=== PATIENT | female | born 1950 | race Caucasian/White ===

== ENCOUNTER 2018-08-07 10:14 | Outpatient (REF) | payer MEDICARE, BC, SELFPAY ==
[2018-08-07 14:14] LABS: Iron 155 ug/dL (50-175); Total Iron Binding Capacity 279 ug/dL (250-450); Transferrin Sat 56 % (15-50)
[2018-08-07 14:16] LABS: Anion Gap 10.2 mmol/L (3-11); BUN 17 mg/dL (7-18); C-Reactive Protein 0.08 mg/dL (0.0-0.3); CO2 27.8 mmol/L (21.0-32.0); CREATININE 0.72 mg/dL (0.55-1.02); Calcium 9.4 mg/dL (8.5-10.1); Chloride 102 mmol/L (98-107); Creatine Kinase 56 U/L (26-192); Glucose 91 mg/dL (70-100); Magnesium 1.9 mg/dL (1.8-2.4); Sodium 140 mmol/L (136-145); TSH (W/Ref FT4) 0.79 uIU/mL (0.358-3.74)
[2018-08-07 15:18] LABS: Vitamin B12 381 pg/mL (193-986)
[2018-08-07 15:25] LABS: Abs Immature Grans 0.01 k/cumm (0.0-0.09); Absolute Basophil Count 0.02 k/cumm (0.0-0.2); Absolute Eosinophil Count 0.08 k/cumm (0.0-0.7); Absolute Lymphocyte Count 1.26 k/cumm (1.2-3.4); Absolute Monocyte Count 0.34 k/cumm (0.11-0.7); Basophils % 0.4; Eosinophils % 1.6; HCT 40.9 % (36.0-46.0); HGB 13.4 g/dL (12.0-15.5); Immature Grans % 0.2; Lymphocytes % 25.1; Mean Corp. HGB Concentration 32.8 g/dL (32.0-36.0); Mean Corpuscular Volume 94.7 fL (80-95); Mean Platelet Volume 9.9 fL (8.0-11.0); Monocytes % 6.8; Neutrophils % 65.9; Platelet Count 249 x1000/uL (130-400); RBC 4.32 m/cumm (4.00-5.20); RBC Distribution Width 11.7 % (11.7-14.6); White Blood Cell Count 5.01 k/cumm (4.4-10.8)
[2018-08-07 16:08] LABS: ESR 12 MM/HR (0-30)
[2018-08-08 09:24] LABS: Hepatitis C Ab w Rflx HCV PCR Negative (NEGAT)
[2018-08-08 11:43] LABS: Lyme Ab w Rflx to Lyme Confirm Negative
[2018-08-08 14:43] LABS: ANA Interpretation Negative (NEGAT)
== END 2018-08-07 10:34 ==
LOC: NCHCN 10:14
PROVIDERS: PCP Internal Medicine; Visit Provider Nurse Practitioner Family
DX: M79.10 Myalgia, unspecified site (principal); M54.2 Cervicalgia; M25.511 Pain in right shoulder; M25.512 Pain in left shoulder; Z11.59 Encounter for screening for other viral diseases
CPT/HCPCS: 80048; 82550; 85652; 86803; 82607; 83540; 83550; 83735; 84443; 85025; 86038; 86140; 86618

== ENCOUNTER 2019-05-29 16:40 | Outpatient (REF) | payer MEDICARE, BC, SELFPAY ==
[2019-05-29 17:17] LABS: HCT 40.4 % (36.0-46.0); HGB 13.5 g/dL (12.0-15.5); Mean Corp. HGB Concentration 33.4 g/dL (32.0-36.0); Mean Corpuscular Hemoglobin 31.4 pg (27.0-33.0); Mean Platelet Volume 9.1 fL (8.0-11.0); Platelet Count 269 x1000/uL (130-400); RBC Distribution Width 11.9 % (11.7-14.6); White Blood Cell Count 4.87 k/cumm (4.4-10.8)
[2019-05-29 17:36] LABS: ALT 25 U/L (14-59); AST 17 U/L (15-37); Albumin 4.1 g/dL (3.4-5.0); Alkaline Phosphatase 84 U/L (46-116); BUN 15 mg/dL (7-18); Bilirubin, Total 0.3 mg/dL (0.2-1.0); CREATININE 0.63 mg/dL (0.55-1.02); Calcium 9.2 mg/dL (8.5-10.1); Calculated LDL 156 mg/dL; Chloride 102 mmol/L (98-107); Cholesterol 251 mg/dL (<200); Glucose 96 mg/dL (74-106); HDL Cholesterol 69 mg/dL (40-60); Potassium 3.8 mmol/L (3.5-5.1); Sodium 140 mmol/L (136-145); TSH (W/Ref FT4) 0.83 uIU/mL (0.36-3.74); Total Protein 7.2 g/dL (6.4-8.2); Triglyceride 134 mg/dL (<150)
== END 2019-05-29 17:00 ==
LOC: NCHCN 16:40
PROVIDERS: PCP Internal Medicine; Visit Provider Specialist/Technologist Athletic Trainer
DX: E78.5 Hyperlipidemia, unspecified (principal); R07.89 Other chest pain
CPT/HCPCS: 80053; 80061; 85027; 83735; 84443

== ENCOUNTER 2019-12-30 05:08 | Emergency (ER) | payer MEDICARE, BC, SELFPAY ==
[2019-12-30 05:13] VITALS: BP 157/85; PULSE 84; RESP 18; TEMP 36.3; O2SAT 97
--- NOTE | 2019-12-30 05:15 | ED.GENADUL_ITS ---
Discharge Plan Disposition Patient Disposition: HOME Condition: Stable Discharge Details Chief Complaint: Allergic Clinical Impression: Bee sting, Allergic reaction Primary Care Provider: Aura Bee ED Provider: Moses Sotelo Home Meds and New Rx's Prescriptions: New prednisone 20 mg tablet 60 mg PO DAILY 4 Days Qty: 12 RF: 0 Discharge Instructions Instructions: General Allergic Reaction (ED) Additional Instructions: take benadryl as needed, 25-50mg every 6 hours if you feel short of breath, chest pain, abdominal pain or nausea/vomit or difficulty swallowing liquids return to the emergency department Medical Decision Making 69 yo female comes in after she was stung numerous times by bees. She states she heard a bear getting into her bee hive and he knocked it over. She went outside and scared the bear away but then was stung over 40 times she thinks by bees. She has itching urticaria denies any respiratory or gi complaints and no difficulty swallowing or throat discomfort. She has clear lungs speaking in full sentences on exam. Doubt anaphylaxis, she drove herself here so will give prednisone and observe. Given she has to drive will hold on benadryl at present pt remains hd stable no changes and no respiratory or GI symptoms will d/c home and return precautions given Differential Diagnosis Differential Diagnosis: allergic reaction, bee sting, anaphylxis HPI General Mode of arrival: ambulatory . Date/Time Provider Initiated Documentation: 12/30/19 05:09 . Limitations to Documentation: no limitations . Information obtained by: patient . History of Present Illness 69 year old F presents to the emergency department with the chief complaint of bee stings, described as moderate, and it has been constant. No relieving factors improve symptom(s), No exacerbating factors reported . Related Data Home Medications Medication Instructions Recorded Confirmed prednisone 60 mg PO DAILY 4 Days #12 tab 12/30/19 Previous Rx's Medication Instructions Recorded prednisone 60 mg PO DAILY 4 Days #12 tab 12/30/19 Allergies Allergy/AdvReac Type Severity Reaction Status Date / Time prochlorperazine edisylate Allergy Feels like Unverified 12/30/19 05:15 [From Compazine] insides crawling all over prochlorperazine maleate Allergy Feels like Unverified 12/30/19 05:15 [From Compazine] insides crawling all over Review of Systems All systems reviewed & are unremarkable except as noted in HPI and below Constitutional Constitutional: Denies chills, Denies fever(s) and Denies weakness Cardiovascular Cardiovascular: Denies chest pain and Denies dyspnea Respiratory Respiratory: Denies cough and Denies dyspnea Gastrointestinal Gastrointestinal: Denies abdominal pain, Denies nausea and Denies vomiting Musculoskeletal Musculoskeletal: Denies joint swelling Neurologic Neurologic: Denies weakness PFSH Social History Smoking/Tobacco Use Status: Never Substance use type: does not use Do you feel safe at home: Yes Do you feel safe in your relationship?: Yes Exam Const General: no acute distress Orientation: alert HENMT Head: normal to inspection Ears: external ears normal General nose exam: external nose normal Mouth: moist mucous membranes Eyes General: appearance normal, both eyes and all related structures Neck Neck: normal visual inspection Resp Effort & Inspection: normal respiratory effort and able to speak in complete sentences Cardio Rate: regular rate Skin General skin exam: no petechiae Neuro General: patient alert and patient oriented x3 Extrem General: normal to inspection Psych Mental Status: mental status grossly normal
[2019-12-30] MEDS: predniSONE 20 MG TAB 60 MG PO (05:19)
[2019-12-30 05:53] VITALS: BP 114/62; PULSE 66; RESP 16; O2SAT 99
[2019-12-30] MEDS: diphenhydrAMINE 25 MG CAP 50 MG PO (05:54)
== END 2019-12-30 06:00 | disposition home or self-care (01) ==
PROVIDERS: Emergency Provider Emergency Medicine; PCP Nurse Practitioner Family
DX: T63.441A Toxic effect of venom of bees, accidental (unintentional), initial encounter (principal); L50.8 Other urticaria
CPT/HCPCS: 99283; J7512

== ENCOUNTER 2020-02-27 02:27 | Outpatient (CLI) | payer MEDICARE, BC, SELFPAY ==
--- NOTE | 2020-02-27 | DI.US_ITS ---
EXAM: US CAROTID CLINICAL HISTORY: CAROTID ARTERY STENOSIS, I65.29 TECHNIQUE: Ultrasound performed using standard protocol. COMPARISON: No exams were available for comparison FINDINGS: Bilateral duplex carotid ultrasound was performed. There is minimal visible plaque in the carotid bu lbs bilaterally. There is bilateral antegrade vertebral flow. Flow velocities in common, internal, and external carotid arteries are within normal limits bilaterally. IMPRESSION: Negative carotid ultrasound, no evidence of a hemodynamically significant carotid stenosis. DATA REPOSITORY:
== END 2020-02-27 02:47 ==
PROVIDERS: PCP Nurse Practitioner Family; Visit Provider Nurse Practitioner Family
DX: I65.29 Occlusion and stenosis of unspecified carotid artery (principal)
CPT/HCPCS: 93880

== ENCOUNTER 2020-08-24 21:52 | Outpatient (REF) | payer MEDICARE, BC, SELFPAY ==
[2020-08-24 21:47] LABS: HCT 40.5 % (36.0-46.0); HGB 13.9 g/dL (11.2-15.7); MCH 32.3 pg (27.0-33.0); MCHC 34.3 % (32.0-36.0); MCV 94.2 fL (80-95); MPV 9.1 fL (8.0-11.0); Platelet Count 226 10^3/uL (130-400); RDW 11.2 % (11.7-14.6); RDW-SD 38.4 fL; WBC 4.42 10^3/uL (4.4-10.8)
[2020-08-25 13:52] LABS: ESR 12 mm/hr (<or=30)
== END 2020-08-24 21:53 | disposition home or self-care (01) ==
LOC: NCHCN 21:52
PROVIDERS: PCP Nurse Practitioner Family; Visit Provider Internal Medicine
DX: M79.18 Myalgia, other site (principal)
CPT/HCPCS: 85027; 85652

== ENCOUNTER 2022-02-25 13:50 | Emergency (ER) | payer MEDICARE, BC, SELFPAY ==
[2022-02-25 14:04] VITALS: BP 140/85; PULSE 86; RESP 18; TEMP 37; O2SAT 99
--- NOTE | 2022-02-25 14:48 | ED.GENADUL_ITS ---
Discharge Plan Disposition Patient Disposition: HOME Condition: Stable Discharge Details Clinical Impression: Strain of right knee Primary Care Provider: Aura Bee ED Provider: Efren Drake Home Meds and New Rx's Prescriptions: New diclofenac sodium 3 % gel 1 applic topical BID PRN (Reason: pain) Qty: 100 0RF Discharge Instructions Instructions: Knee Pain (ED) Additional Instructions: If you have any new or significant worsening of symptoms please return immediately to the emergency department. Otherwise keep your appointment for follow-up with your primary care provider for reassessment and further treatment or referral as needed. On top of the prescribed medication you may also use [id number] lidocaine cream as directed on packaging Referrals: Aura Bee [Primary Care Provider] - 03/11/22 Discharge Data Discharge Date/Time-TO BE ENTERED AT DEPARTURE: 02/25/22 15:12 Medical Decision Making Patient presenting to the emergency department for chief complaint of right knee pain. Patient states increased hiking over the last week and a half and denies any significant injury but has had minor twist and falls that she thought nothing of. Patient denies any other injury or trauma but does state worsening medial knee pain. Physical exam shows no tenderness to palpation of the lower extremity or the thigh and only tenderness is noted with valgus ligamentous testing. I suspect a minor sprain/strain to the right knee mostly in the MCL. Patient is otherwise ambulatory and with no point or bony prominence tenderness I do not feel that emergent radiological imaging is required but will place patient in hinged knee brace for support. Patient was prescribed diclofenac gel given that she states she does not like to take medications if not possible so I feel this may help with pain control along with [id number] lidocaine. After discussion of diagnosis and plan of care patient has no further needs, questions, or concerns and states clear understanding to return to the emergency department for any worsening symptoms. This documentation was generated using [employer] dictation system, please disregard any oddities of phrase or misspellings. HPI General Mode of arrival: ambulatory . Date/Time Provider Initiated Documentation: 02/25/22 14:32 . Limitations to Documentation: no limitations . History of Present Illness 71 year old F presents to the emergency department with the chief complaint of right knee pain, described as mild, with intensity rated at 2. Quality is described as aching, and is localized to the lower extremity. Patient reports no radiation. Patient started experiencing this day(s) (6) and it has been constant. Rest improves symptom(s), Movement worsens symptoms . Patient notes no other symptoms.. Patient did receive the following treatments prior to arrival, none Related Data Home Medications Medication Instructions Recorded Confirmed diclofenac sodium 3 % topical gel 1 applic topical BID PRN pain #100 02/25/22 grams Previous Rx's Medication Instructions Recorded diclofenac sodium 3 % topical gel 1 applic topical BID PRN pain #100 02/25/22 grams Allergies Allergy/AdvReac Type Severity Reaction Status Date / Time prochlorperazine edisylate Allergy Feels like Unverified 12/30/19 05:15 [From [email or web address]] insides crawling all over prochlorperazine maleate Allergy Feels like Unverified 12/30/19 05:15 [From [email or web address]] insides crawling all over General Stated Complaint: Orthopedic ALEXANDR: 4 Review of Systems Narrative: 6 systems reviewed and unremarkable except what is marked below. Musculoskeletal Musculoskeletal: Reports as per HPI, Reports arthralgias, Denies joint swelling, Denies limited range of motion, Denies numbness, Denies stiffness and Denies tingling Integumentary/Breasts Skin/Breast: Denies erythema and Denies rash Neurologic Neurologic: Denies numbness and Denies tingling PFSH All Active Problems Strain of right knee (Acute) Social History Smoking/Tobacco Use Status: Never Smoking risk assessment performed?: Yes Substance use type: marijuana Do you feel safe at home: Yes Do you feel safe in your relationship?: Yes Exam Const General: cooperative, no acute distress and not ill appearing Orientation: alert, awake and oriented x3 Resp Effort & Inspection: normal respiratory effort, able to speak in complete sentences and no respiratory distress Cardio Rate: regular rate Rhythm: regular rhythm Pulses: normal peripheral pulses Skin General skin exam: no rashes or lesions noted Neuro General: patient alert, patient awake, patient oriented x3, moves all extremities and no focal motor deficits Sensory Exam: no sensory deficits noted Extrem General: normal exam except as noted Right lower extremity: knee Details: normal ROM and knee ligament exam abnormal Details: valgus stress test normal Details: pain noted; anterior drawer test abnormal, posterior drawer test abnormal and varus stress test abnormal; no ecchymosis, no crepitus and no deformity Course Vital Signs Vital signs: Vital Signs Temperature 37 C 02/25/22 14:04 Pulse 86 02/25/22 14:04 Respiratory Rate 18 02/25/22 14:04 Blood Pressure 140/85 02/25/22 14:04 Pulse Oximetry 99 02/25/22 14:04 Temperature 37 C 02/25/22 14:04 Temperature Source Temporal Artery Scan 02/25/22 14:04 Pulse 86 02/25/22 14:04 Respiratory Rate 18 02/25/22 14:04 Respiratory Effort Non-Labored 02/25/22 14:07 Blood Pressure 140/85 02/25/22 14:04 Blood Pressure Position Sitting 02/25/22 14:04 Pulse Oximetry 99 02/25/22 14:04 Oxygen Delivery Method Room Air 02/25/22 14:04 Oxygen Flow Rate 0 02/25/22 14:04 Pain Level 2 02/25/22 14:04
== END 2022-02-25 15:12 | disposition home or self-care (01) ==
PROVIDERS: Emergency Provider Nurse Practitioner Family; PCP Nurse Practitioner Family
DX: S83.8X1A Sprain of other specified parts of right knee, initial encounter (principal); X58.XXXA Exposure to other specified factors, initial encounter
CPT/HCPCS: 99283